=== PATIENT | female | born 1955 | race African-American/Black ===

== ENCOUNTER 2024-03-27 14:25 | Inpatient (IN) | payer BC, MEDICARE ==
[~2024-03-27] VITALS: Ht 165.1 cm; Wt 56.2 kg
[2024-03-27] MEDS: LORAZEPAM 0.5MG TABLET PO ONE (14:58)
[2024-03-27 15:21] LABS: BASOPHILS % 0.9 % (0.0-2.0); EOSINOPHILS % 1.4 % (0.0-5.0); HEMATOCRIT. 41.5 % (36.0-48.0); HEMOGLOBIN. 14.6 g/dL (12.0-16.0); LYMPHOCYTES % 34.5 % (20.0-50.0); MEAN CORPUSCULAR HEMOGLOBIN 32.3 pg (28.0-32.0); MEAN CORPUSCULAR HGB CONC 35.1 g/dL (31.0-37.0); MEAN CORPUSCULAR VOLUME 91.8 fL (81.0-99.0); MEAN PLATELET VOLUME 8.9 fl (7.4-10.4); MONOCYTES % 8.8 % (2.0-8.0); NEUTROPHILS % 54.4 % (40.0-76.0); PLATELET 197 x1000/uL (130-400); RED BLOOD CELL COUNT 4.52 mill/uL (4.2-5.4); RED CELL DISTRIBUTION WIDTH 12.8 % (11.6-14.6); WHITE BLOOD COUNT 7.4 x1000/uL (4.5-11.0)
[2024-03-27 15:27] LABS: CHLORIDE 110 mEq/L (98-107); SODIUM 140 mEq/L (136-145)
[2024-03-27 15:28] LABS: CALCIUM 9.7 mg/dL (8.7-10.4); CARBON DIOXIDE 19 mEq/L (21-32)
[2024-03-27 15:33] LABS: CREATININE 0.8 mg/dL (0.6-1.0); GLUCOSE 93 mg/dL (70-105); UREA NITROGEN BLOOD 22 mg/dL (9-23)
[2024-03-27 15:34] LABS: TROPONIN I HIGH SENSITIVITY 4 ng/L (3.0-34)
[2024-03-27 15:35] LABS: ALANINE AMINOTRANSFERASE 14 IU/L (10-49); ALBUMIN 4.2 g/dL (3.2-4.8); ASPARTATE AMINOTRANSFERASE 23 IU/L (<34); BILIRUBIN DIRECT 0.3 mg/dL (<=3.0); PROTEIN TOTAL 7.1 g/dL (6.0-8.3); PROTHROMBIN TIME 10.8 sec (9.6-11.0)
[2024-03-27 15:38] LABS: POTASSIUM 2.8 mEq/L (3.5-5.1)
[2024-03-27] MEDS: POTASSIUM CHLORIDE 20MEQ/PACKET PO NR (16:38)
[2024-03-27 18:59] LABS: CHLORIDE 110 mEq/L (98-107); POTASSIUM 3.4 mEq/L (3.5-5.1); SODIUM 140 mEq/L (136-145)
[2024-03-27 19:00] LABS: CALCIUM 9.4 mg/dL (8.7-10.4); CARBON DIOXIDE 18 mEq/L (21-32)
[2024-03-27 19:05] LABS: CREATININE 0.8 mg/dL (0.6-1.0); GLUCOSE 87 mg/dL (70-105); UREA NITROGEN BLOOD 22 mg/dL (9-23)
[2024-03-27 19:06] LABS: TROPONIN I HIGH SENSITIVITY 4 ng/L (3.0-34)
[2024-03-27] MEDS: SODIUM CHLORIDE 0.9% 1,000 ML IV ONE (20:35)
[2024-03-27] MEDS ORDERED: IPRATROPIUM/ALBUTEROL 0.5-3(2.5)MG/3ML NEB HHN PRN (21:15)
[2024-03-27] MEDS ORDERED: ACETAMINOPHEN 325MG TABLET PO PRN ×2 (21:15)
[2024-03-27] MEDS ORDERED: ONDANSETRON HCL 4MG/2ML INJ IV PRN (21:15)
[2024-03-27] MEDS ORDERED: DOCUSATE SODIUM 100MG CAPSULE PO PRN (21:15)
[2024-03-27] MEDS ORDERED: CLONIDINE 0.1MG TABLET PO PRN (21:15)
[2024-03-27] MEDS ORDERED: MAGNESIUM/ALUMINUM HYDROXIDE/SIMETHICONE 30ML UDC PO PRN (21:15)
[2024-03-27 21:58] LABS: T4 FREE 1.26 ng/dL (0.89-1.76)
[2024-03-27 22:11] VITALS: BP 113/84; PULSE 58; RESP 29; TEMP 97.5
[2024-03-27 23:31] LABS: BG CARBOXYHEMOGLOBIN 0.4 % (0.5-1.5); BG DEOXYHEMOGLOBIN 1.3 % (0.0-5.0); BG FRACTION INSPIRED OXYGEN 21; BG HCO3 ACT 13.4 mmol/L (22.0-26.0); BG METHEMOGLOBIN 0.3 % (0.0-1.5); BG OXYGEN SATURATION 98.7 % (92.0-98.5); BG PCO2 11.9 mmHg (35.0-45.0); BG PH 7.671 (7.350-7.450); BG PO2 113.6 mmHg (75.0-100.0); BG SAMPLE SITE LEFT RADIAL; BG TOTAL HEMOGLOBIN 14.3 g/dL (12.0-18.0); BG VENT MODE ROOM AIR
[2024-03-28 00:51] VITALS: BP 103/70; PULSE 54; RESP 18; TEMP 98.1
[2024-03-28] MEDS: LACTATED RINGERS 1,000 ML IV SCH (01:02)
[2024-03-28 02:13] LABS: CLARITY URINE CLEAR (CLEAR); COLOR URINE YELLOW (YELLOW); GLUCOSE URINE NEGATIVE (NEGATIVE); KETONES URINE TRACE (NEGATIVE); LEUKOCYTE ESTERASE URINE NEGATIVE (NEGATIVE); NITRITE URINE NEGATIVE (NEGATIVE); OCCULT BLOOD URINE NEGATIVE (NEGATIVE); PROTEIN URINE TRACE (NEGATIVE); SPECIFIC GRAVITY URINE 1.026 (1.005-1.030)
[2024-03-28 04:25] VITALS: BP 92/74; PULSE 50; RESP 20; TEMP 97.6
[2024-03-28 05:02] LABS: BACTERIA URINE TRACE; RBC URINE 0-2 /hpf (0-2); SQUAMOUS EPITHELIAL CELL URINE FEW /lpf (RARE/1+)
[2024-03-28] MEDS: LORAZEPAM 2MG/ML INJ IV NR (05:08)
[2024-03-28] MEDS: IOHEXOL-350 100 ML BOTTLE ONE (06:36)
[2024-03-28] MEDS ORDERED: TOPUD MT (07:16)
[2024-03-28 07:18] LABS: BASOPHILS % 0.5 % (0.0-2.0); EOSINOPHILS % 2.5 % (0.0-5.0); HEMATOCRIT. 38.6 % (36.0-48.0); HEMOGLOBIN. 13.1 g/dL (12.0-16.0); LYMPHOCYTES % 31.8 % (20.0-50.0); MEAN CORPUSCULAR HEMOGLOBIN 32.4 pg (28.0-32.0); MEAN CORPUSCULAR HGB CONC 33.9 g/dL (31.0-37.0); MEAN CORPUSCULAR VOLUME 95.6 fL (81.0-99.0); MEAN PLATELET VOLUME 9.1 fl (7.4-10.4); MONOCYTES % 9.6 % (2.0-8.0); NEUTROPHILS % 55.6 % (40.0-76.0); PLATELET 168 x1000/uL (130-400); RED BLOOD CELL COUNT 4.03 mill/uL (4.2-5.4); RED CELL DISTRIBUTION WIDTH 12.7 % (11.6-14.6); WHITE BLOOD COUNT 5.6 x1000/uL (4.5-11.0)
[2024-03-28] MEDS ORDERED: DONE10TA11 MT (07:21)
[2024-03-28] MEDS ORDERED: DIVAL250 MT (07:22)
[2024-03-28 07:33] LABS: CHLORIDE 113 mEq/L (98-107); POTASSIUM 3.1 mEq/L (3.5-5.1); SODIUM 141 mEq/L (136-145)
[2024-03-28 07:34] LABS: CARBON DIOXIDE 19 mEq/L (21-32)
[2024-03-28 07:35] LABS: CALCIUM 8.4 mg/dL (8.7-10.4)
[2024-03-28 07:39] LABS: CREATININE 0.8 mg/dL (0.6-1.0); GLUCOSE 83 mg/dL (70-105); TRIGLYCERIDE 99 mg/dL (0-150); UREA NITROGEN BLOOD 17 mg/dL (9-23)
[2024-03-28 07:40] LABS: LDL CHOLESTEROL 62 mg/dL (5-100)
[2024-03-28 07:41] LABS: CHOLESTEROL 105 mg/dL (<200); HDL CHOLESTEROL 28 mg/dL (>65)
[2024-03-28 07:54] LABS: HEPATITIS B SURFACE ANTIGEN NEGATIVE (Negative)
[2024-03-28] MEDS ORDERED: FAMO20TA8 MT (07:58)
[2024-03-28] MEDS ORDERED: ATEN-42 MT (07:58)
[2024-03-28 08:00] VITALS: BP 90/62; PULSE 51; RESP 30; TEMP 98.3
[2024-03-28 08:15] LABS: HEPATITIS C AB NON REACTIVE (Neg) (Negative)
[2024-03-28] MEDS: AMOXICILLIN/POTASSIUM CLAVULANATE 875/125MG TAB PO SCH (09:45)
[2024-03-28] MEDS: KCL 20MEQ/100ML PREMIX 100 ML IV SCH (09:45)
[2024-03-28] MEDS: ENOXAPARIN 40MG/0.4ML SYR SUBCUT SCH (09:46)
[2024-03-28 11:09] LABS: BG BASE EXCESS -2.8 mmol/L (-2.0-2.0); BG CARBOXYHEMOGLOBIN 0.8 % (0.5-1.5); BG DEOXYHEMOGLOBIN 0.6 % (0.0-5.0); BG FRACTION INSPIRED OXYGEN 21; BG HCO3 ACT 14.4 mmol/L (22.0-26.0); BG METHEMOGLOBIN 0.3 % (0.0-1.5); BG OXYGEN SATURATION 99.4 % (92.0-98.5); BG OXYHEMOGLOBIN 98.3 % (94.0-97.0); BG PCO2 13.6 mmHg (35.0-45.0); BG PH 7.644 (7.350-7.450); BG PO2 138.6 mmHg (75.0-100.0); BG TOTAL HEMOGLOBIN 14.3 g/dL (12.0-18.0); BG VENT MODE ROOM AIR
[2024-03-28 12:00] VITALS: BP 90/62; PULSE 54; RESP 15; TEMP 98.3
[2024-03-28] MEDS ORDERED: QUETIAPINE FUMARATE 50MG TABLET PO SCH (13:30)
[2024-03-28] MEDS: DIVALPROEX SODIUM 250MG ER TABLET PO SCH (14:39)
[2024-03-28 16:00] VITALS: BP 83/59; PULSE 60; RESP 20; TEMP 98.1
[2024-03-28 20:00] VITALS: BP 99/53; PULSE 62; RESP 49; TEMP 98.1
[2024-03-28] MEDS ORDERED: OLANZAPINE 2.5MG TABLET PO SCH (21:00)
[2024-03-28] MEDS ORDERED: ALPRAZOLAM 0.25 MG TABLET PO SCH (21:00)
[2024-03-28] MEDS: DONEPEZIL HCL 10MG TABLET PO SCH (22:21)
[2024-03-28] MEDS: QUETIAPINE FUMARATE 25MG TABLET PO SCH (22:22)
[2024-03-28] MEDS: FAMOTIDINE 20MG TABLET PO SCH (22:22)
[2024-03-28] MEDS: ALPRAZOLAM 0.25 MG TABLET PO SCH (22:23)
[2024-03-29] VITALS (7 sets, daily range): BP systolic 89–108; BP diastolic 46–79; PULSE 50–77; RESP 14–21; TEMP 97.6–98; O2SAT 99
[2024-03-29] MEDS ORDERED: QUET25TA PO ×2 (13:32→13:36)
== END 2024-03-29 17:00 | disposition hospice, home (50) | DRG 683 ==
LOC: ER 14:25 → 3WST 20:03
PROVIDERS: ADMIT Hospitalist; ATTEND Hospitalist
DX: N17.9 Acute kidney failure, unspecified (principal); E87.20 Acidosis, unspecified; E87.3 Alkalosis; F03.94 Unspecified dementia, unspecified severity, with anxiety; E78.5 Hyperlipidemia, unspecified; E87.6 Hypokalemia; G47.00 Insomnia, unspecified; I10 Essential (primary) hypertension; K52.9 Noninfective gastroenteritis and colitis, unspecified; Z74.01 Bed confinement status; Z79.899 Other long term (current) drug therapy
CPT/HCPCS: 36415; 36600; 71045; 71275; 76700; 80048; 80061; 80076; 80165; 81003; 82375; 82805; 83605; 83735; 84439; 84443; 84484; 85025; 85379; 86705; 87340; 93005; 93306; 93970; 99291; A6261; J1650; J2060; J3480; J7120; Q9967